=== PATIENT | female | born 2005 | race Asian ===

== ENCOUNTER 2025-03-01 08:18 | Emergency (ER) | payer OTHER ==
[~2025-03-01] VITALS: Ht 149.9 cm; Wt 59.1 kg
[2025-03-01 08:36] VITALS: TEMP 97.9
[2025-03-01] MEDS ORDERED: AMOX-457 PO (10:15)
[2025-03-01] MEDS ORDERED: POLYOS OU (10:15)
[2025-03-01 10:25] VITALS: BP 115/70; PULSE 71; RESP 15; O2SAT 99
[2025-03-01] MEDS: POLYMYXIN B/TRIMETHOPRIM 10 ML OPHTHALMIC SOLUTION OU ONE (10:44)
[2025-03-01] MEDS: AMOX TR/POT CLAV 875 MG/125 MG TABLET PO ONE (10:45)
== END 2025-03-01 10:52 | disposition home or self-care (01) ==
LOC: EMS 08:18
DX: L03.213 Periorbital cellulitis (principal); H10.9 Unspecified conjunctivitis; R51.9 Headache, unspecified
CPT/HCPCS: 70450; 99284